=== PATIENT | female | born 1970 | race Asian ===

== ENCOUNTER 2020-12-04 02:10 | Emergency (ER) | payer BC ==
[~2020-12-04] VITALS: Ht 162.6 cm; Wt 90.7 kg
[2020-12-04 02:37] LABS: BASOPHILS ABSOLUTE AUTO 0.07 K/mm3 (0.00-0.23); BASOPHILS PERCENT AUTO 1 % (0-2); EOSINOPHILS ABSOLUTE AUTO 0.46 K/mm3 (0.00-0.68); EOSINOPHILS PERCENT AUTO 7 % (0-6); Hematocrit 39.8 % (33.0-51.0); Hemoglobin 12.6 g/dL (11.5-16.0); IMMATURE GRAN ABSOLUTE AUTO 0.02 K/mm3 (0.00-0.10); IMMATURE GRAN PERCENT AUTO 0 % (0-1); LYMPHOCYTES ABSOLUTE AUTO 3.36 K/mm3 (0.84-5.20); LYMPHOCYTES PERCENT AUTO 47 % (21-46); MONOCYTES ABSOLUTE AUTO 0.76 K/mm3 (0.16-1.47); MONOCYTES PERCENT AUTO 11 % (4-13); Mean Corpuscular HGB 26.6 pg (26.0-34.0); Mean Corpuscular HGB Conc 31.7 g/dL (31.5-36.5); Mean Corpuscular Volume 84 fL (80-100); Mean Platelet Volume 8.6 fL (9.1-12.4); NEUTROPHILS ABSOLUTE AUTO 2.44 K/mm3 (1.96-9.15); NEUTROPHILS PERCENT AUTO 34 % (41-73); Platelet Count 291 K/mm3 (150-400); RDW Coefficient Variation 13.3 % (11.7-14.2); RDW Standard Deviation 41.5 fL (35.1-46.3); Red Blood Cell Count 4.73 M/mm3 (3.80-5.20); White Blood Cell Count 7.11 K/mm3 (4.00-11.30)
[2020-12-04] MEDS ORDERED: FAMC250 PO (02:55)
[2020-12-04] MEDS ORDERED: ALUMINUM H320 MG/5 M PO (02:56)
[2020-12-04] MEDS ORDERED: ONDA4ODT MM (02:56)
[2020-12-04 02:57] LABS: Alanine Aminotransfer (ALT/SGP 183 U/L (12-78); Albumin, Blood 3.9 g/dL (3.4-5.0); Albumin/Globulin Ratio 0.9 (0.8-1.8); Alk Phos 96 U/L (50-136); Anion Gap 6 mmol/L (6-16); Aspartate Aminotrans (AST/SGOT 81 U/L (12-37); Bilirubin, Total 0.3 mg/dL (0.1-1.0); Blood Urea Nitrogen 16 mg/dL (8-24); Bun/Creatinine Ratio 20.7 (12.0-20.0); CO2, Blood 26 mmol/L (21-32); Calcium, Blood 8.8 mg/dL (8.5-10.1); Chloride, Blood 110 mmol/L (98-108); Creatinine, Blood 0.77 mg/dL (0.40-1.00); Globulin, Blood 4.2 g/dL (2.2-4.0); Glomerular Filtration Rate >60 (60-); Glucose, Blood 103 mg/dL (70-99); Potassium, Blood 4.3 mmol/L (3.5-5.5); Sodium, Blood 142 mmol/L (136-145); Total Protein, Blood 8.1 g/dL (6.4-8.2)
[2020-12-04] MEDS ORDERED: Adipex-P37.5 M1 PO (02:57)
[2020-12-04] MEDS ORDERED: PANTOPRAZOLE SO40 M2 PO (02:57)
[2020-12-04] MEDS ORDERED: METHOTREXATE2.5 M2 PO (02:57)
== END 2020-12-04 04:59 | disposition home or self-care (01) ==
LOC: ER 02:10
PROVIDERS: Emergency Medicine
DX: B02.9 Zoster without complications (principal); Z79.899 Other long term (current) drug therapy
CPT/HCPCS: 80053; 85025; 96374; 96375; 96376; 99283-25; A9270; J2405; J3010